=== PATIENT | male | born 1940 ===

== ENCOUNTER 2016-09-13 05:58 | Emergency (ER) | payer OTHER, MEDICARE ==
[2016-09-13] MEDS ORDERED: Sodium Chloride 0.9% 1,000 ML IV ONE (06:17)
[2016-09-13] MEDS ORDERED: Sodium Chloride 0.9% 1,000 ML ONE (06:17)
--- NOTE | 2016-09-13 06:17 | C.PDOC ---
History Of Present Illness Patient presents to the ER with a complaint of nausea, vomiting, and abdominal pain since last night. Patient states he has not been able to tolerate PO; denies fever, chills, chest pain, or palpation. Time Seen by Provider: 09/13/16 06:16 Chief Complaint (Nursing): Abdominal Pain History Per: Patient History/Exam Limitations: no limitations Onset/Duration Of Symptoms: Hrs Current Symptoms Are (Timing): Still Present Severity: Moderate Pain Scale Rating Of: 4 Location Of Pain/Discomfort: Diffuse Radiation Of Pain To:: None Quality Of Discomfort: Unable To Describe Associated Symptoms: Nausea, Vomiting. denies: Fever, Chills, Chest Pain Exacerbating Factors: None Alleviating Factors: None Last Bowel Movement: Yesterday Recent travel outside of the [place]: No Past Medical History Reviewed: Historical Data, Nursing Documentation, Vital Signs Vital Signs: Last Vital Signs Temp 98.2 F 09/13/16 06:10 Pulse 81 09/13/16 06:10 Resp 20 09/13/16 06:10 BP 163/94 H 09/13/16 06:10 Pulse Ox 96 09/13/16 06:29 - Medical History PMH: HTN Surgical History: Cholecystectomy Family History: States: Unknown Family Hx - Social History Hx Alcohol Use: No Hx Substance Use: No Review Of Systems Constitutional: Negative for: Fever, Chills Cardiovascular: Negative for: Chest Pain, Palpitations Gastrointestinal: Positive for: Nausea, Vomiting, Abdominal Pain Physical Exam - Physical Exam Appears: Non-toxic Skin: Warm, Dry Head: Normacephalic Eye(s): bilateral: Normal Inspection Oral Mucosa: Moist Neck: Supple Chest: Symmetrical, No Tenderness Cardiovascular: Rhythm Regular, No Murmur Respiratory: No Rales, No Rhonchi, No Wheezing Gastrointestinal/Abdominal: Soft, Tenderness (Mild diffuse), No Guarding, No Rebound, Other (Large cholecystectomy scar) Back: No CVA Tenderness Extremity: Normal ROM Extremity: Bilateral: Atraumatic, Normal Color And Temperature Pulses: Left Dorsalis Pedis: Normal, Right Dorsalis Pedis: Normal Neurological/Psych: Oriented x3, Normal Speech, Normal Cognition Gait: Steady ED Course And Treatment - Laboratory Results Result Diagrams: 09/13/16 06:23 ECG: Interpreted By Me, Viewed By Me ECG Rhythm: Sinus Rhythm (83), Nonspecific Changes O2 Sat by Pulse Oximetry: 96 (Room air) Pulse Ox Interpretation: Normal Progress Note: EKG, blood work, and urinalysis ordered. Morphine, zofran, protonix, and IV fluids administered. Disposition Counseled Patient/Family Regarding: Studies Performed, Diagnosis - Disposition Disposition Time: 06:17 Condition: UNKNOWN Forms: [facility] (Chinese) - Clinical Impression Clinical Impression: Abdominal pain, Nausea, Vomiting - Scribe Statement The provider has reviewed the documentation as recorded by the Scribnathanael Browne All medical record entries made by the Scribe were at my direction and personally dictated by me. I have reviewed the chart and agree that the record accurately reflects my personal performance of the history, physical exam, medical decision making, and the department course for this patient. I have also personally directed, reviewed, and agree with the discharge instructions and disposition. Physician Patient Turnover Patient Signed Over To: Barbara Small Handoff Comments: pending labs and dsposition
[2016-09-13 06:26] LABS: BASO # 0.1 K/uL (0.0-0.2); BASO % 0.6 % (0.0-2.0); EOS % 0.2 % (0.0-4.0); HEMATOCRIT 40.4 % (35.0-51.0); LYMPH # 1.5 K/uL (1.0-4.3); LYMPH % 13.4 % (20.0-40.0); MEAN CELL VOLUME 94.9 fL (80.0-94.0); MEAN CORPUSCULAR HEMOGLOBIN 32.1 pg (27.0-31.0); MEAN CORPUSCULAR HGB CONC 33.8 g/dL (33.0-37.0); MEAN PLATELET VOLUME 7.2 fL (7.2-11.7); MONO # 0.9 K/uL (0.0-0.8); MONO % 8.2 % (0.0-10.0); NRBC % 0.1 % (0.0-2.0); RED CELL DISTRIBUTION WIDTH 13.1 % (11.5-14.5); WHITE BLOOD COUNT 11.4 K/uL (4.8-10.8)
[2016-09-13] MEDS ORDERED: Morphine 4 MG/ML VIAL ONE (06:26)
[2016-09-13 06:42] LABS: CHLORIDE 94 mmol/L (98-107)
[2016-09-13 06:43] LABS: SODIUM 139 mmol/L (132-148)
[2016-09-13 06:45] LABS: ALB/GLOB RATIO 1.1 (1.0-2.1); ALKALINE PHOSPHATASE 71 U/L (38-126); ALT/SGPT 34 U/L (21-72); AST/SGOT 29 U/L (17-59); BILIRUBIN,TOTAL 1.2 mg/dL (0.2-1.3); BLOOD UREA NITROGEN 15 mg/dL (9-20); CARBON DIOXIDE 29 mmol/L (22-30); GFR AFRICAN-AMERICAN > 60; GLUCOSE,RANDOM 162 mg/dL (75-110); TOTAL PROTEIN 8.4 g/dL (6.3-8.3)
[2016-09-13] MEDS ORDERED: Morphine 4 MG/ML VIAL IVP STA (06:52)
[2016-09-13 08:22] VITALS: BP 119/76; PULSE 89; RESP 18; TEMP 98.3; O2SAT 95
--- NOTE | 2016-09-14 13:56 | CARD ---
APPROVED REPORT EKG Measurement Heart [id number] <Conclusion> Normal sinus rhythm Normal ECG
== END 2016-09-13 08:25 | disposition home or self-care (01) ==
LOC: C.ER 05:58
DX: R11.2 Nausea with vomiting, unspecified (principal); R10.9 Unspecified abdominal pain
CPT/HCPCS: 80053; 83690; 85025; 85610; 85730; 93005; 96374; 96375; 99285; C9113; J2270; J2405; J7040